=== PATIENT | female | born 1990 | race Caucasian/White ===

== ENCOUNTER 2016-04-27 17:19 | Inpatient (IN) | payer OTHER ==
[~2016-04-27] VITALS: Ht 177.8 cm; Wt 141.0 kg
[~2016-04-27 17:19] MED LIST: ACET50TA PO; IBUP80TA PO; PRENTAB9 PO; ZOLOFT PO; [UNRECOGNIZED DRUG - OTHER] PO
[2016-04-27 17:40] VITALS: BP 112/57
[2016-04-27] MEDS ORDERED: OMEP40CA2 PO (17:42)
[2016-04-27] MEDS ORDERED: BETAMETHASONE SOLUSPAN 6MG/ML INJ 5ML (J0702) IM SCH (18:00)
[2016-04-27] MEDS ORDERED: PENICILLIN G POTASSIUM IV 5 MU in D5W MINI-BAG PLUS 100 ML IV STA (18:24)
[2016-04-27] MEDS ORDERED: miSOPROStol 50 MCG 1/2 TAB (S0191) PO ONE (18:30)
[2016-04-27 18:52] LABS: MEAN CORPUSCULAR HEMOGLOBIN 29.1 pg (27.0-33.0); MEAN CORPUSCULAR HGB CONC 34.2 g/dl (32.0-36.5); MEAN CORPUSCULAR VOLUME 84.9 fl (80.0-96.0); RED CELL DISTRIBUTION WIDTH 14.5 % (11.5-14.5); WHITE BLOOD COUNT 10.9 K/mm3 (4.0-10.0)
--- NOTE | 2016-04-27 19:33 | HPE ---
DATE OF ADMISSION: 04/27/2015 Darlene is a 25-year-old 3, para 2002 incarcerated female who presents to labor and delivery today via [employer] with the complaint of rupture of membranes at approximately 1530 hours. She reports the fluid is clear. She denies contractions. Denies bleeding. Her fetus has been active. care was initiated at [facility] in the first trimester. course complicated by smoking prior to . Rubella nonimmune. GBS: Bacteremia. A history of oligohydramnios. A history of placental abruption. Positive chlamydia during the with treatment of care negative. Recent incarceration for distribution of illegal drugs. OB HISTORY: March 2013 at 38 weeks gestation, she had a spontaneous vaginal delivery for a 4 pounds 7 ounce male with a placental abruption and meconium. was transferred to [facility]. May 2014 at 38 weeks gestation, she had a spontaneous vaginal delivery for a 6 pound 5 ounce female and induction of labor due to oligohydramnios. OB LABS: Blood type is B positive. Antibody screen negative. She is rubella non-immune. VDRL is nonreactive. GBS and urine, hepatitis B surface antigen negative, HIV negative. Hepatitis C antibody negative. Gonorrhea and chlamydia negative. She did decline all genetic serum screening markers. Gestational diabetic screening 106. Gonorrhea and chlamydia negative on 03/31/2016. On 01/22/2016 she had a positive chlamydia. PAST MEDICAL HISTORY: History of depression. Childhood varicella. FAMILY HISTORY: Noncontributory. SURGERIES: None. SOCIAL HISTORY: The patient is single. Father of baby is not present. 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 She denies smoking during the , denies drug use during the . Denies alcohol during the . She does have a history of positive chlamydia. She does deny history of abuse, physical, sexual or emotional. ALLERGIES: No known drug allergies. CURRENT MEDICATIONS: vitamins. OBJECTIVE: Temperature is 98.3, pulse 103, respirations 20, blood pressure 112/57. She is alert and oriented times three. She is in no apparent distress. heart rate is 145 with moderate variability. Positive accelerations. No decelerations noted. There is no pattern of regular contractions. She is grossly ruptured. Clear fluid leaking from her vagina. Positive Nitrazine, positive ferning. STERILE VAGINAL EXAM: 1 cm dilated, 75% effaced, - 3 station. Abdomen is gravid. Cephalic presentation. Bedside ultrasound confirmed cephalic presentation. Estimated weight approximately 2500 grams. ASSESSMENT: Intrauterine at 35 and 2/7 weeks gestation. heart rate category 1. premature rupture of membranes. PLAN: Admit patient to labor and delivery. Labs as ordered. Saline lock. Out of bed ad antoinette. Regular diet at this time. Betamethasone for lung maturity. Will start antibiotics for GBS positive status. I did review the plan of care with the patient and standard care is for induction of labor with premature rupture of membranes in a fetus past 34 weeks. Did review recent evidence that standard care has been changed to betamethasone for lung maturity up until 36-6/7 weeks. The patient did have all of her questions answered. I will start misoprostol 50 mcg by mouth for cervical ripening, one dose, and then start pitocin IV likely unless labor ensues. I do anticipate labor and a spontaneous vaginal delivery. MTDD
[2016-04-27 20:23] VITALS: BP 122/65
[2016-04-27 22:47] VITALS: BP 126/71
[2016-04-27] MEDS ORDERED: PENICILLIN G POTASSIUM IV 2.5 MU in D5W 100 ML IV SCH (23:00)
[2016-04-27] MEDS ORDERED: miSOPROStol 50 MCG 1/2 TAB (S0191) PV ONE (23:30)
[2016-04-28] VITALS (7 sets, daily range): BP systolic 118–157; BP diastolic 66–95
[2016-04-28] MEDS ORDERED: FENTANYL 2MCG/ML ROPIVACAINE 0.2% NACL 250 ML CADD As Ordered ONE (02:35)
[2016-04-28] MEDS ORDERED: OXYTOCIN 30 UNITS IN 0.9% NaCl 500ML IV BAG (J2590) As Ordered ONE (02:48)
[2016-04-28 03:10] LABS: CORD GAS ABE V -1.4; CORD GAS HCO3 V 24.1 MEQ/L; CORD GAS O2 SAT V 55.2 %; CORD GAS PCO2 V 43.4 mmHg; CORD GAS PH V 7.363 UNITS; CORD GAS PO2 V 22.4 mmHg; CORD GAS SBC V 22.4 MEQ/L; CORD GAS TCO2 V 25.5 MEQ/L
[2016-04-28 03:13] LABS: CORD GAS ABE A -0.6; CORD GAS HCO3 A 26.5 MEQ/L; CORD GAS PCO2 A 53.4 mmHg; CORD GAS PH A 7.313 UNITS; CORD GAS PO2 A 17.8 mmHg; CORD GAS SBC A 22.6 MEQ/L; CORD GAS TCO2 A 28.1 MEQ/L
[2016-04-28] MEDS ORDERED: OXYTOCIN DRIP 30 UNITS in APPROPRIATE DILUENT 1 EA IV SCH (03:22)
[2016-04-28] MEDS ORDERED: ACETAMINOPHEN 500 MG TAB PO PRN (03:30)
[2016-04-28] MEDS ORDERED: RHOGAM 300 MCG (1500 IU) INJ (J2790) IM SCH (03:30)
[2016-04-28] MEDS ORDERED: DIBUCAINE 1% OINTMENT 30GM TOP PRN (03:30)
[2016-04-28] MEDS ORDERED: DOCUSATE SODIUM 100 MG CAP PO PRN (03:30)
[2016-04-28] MEDS ORDERED: MEASLES,MUMPS,RUBELLA VACCINE INJ (MMR-II) (90707) SC SCH (03:30)
[2016-04-28] MEDS ORDERED: METHYLERGONOVINE MALEATE 0.2 MG TAB PO PRN (03:30)
--- NOTE | 2016-04-28 04:28 | DN ---
DATE OF SERVICE: 04/28/2016 Darlene is a 25-year-old 3, para 2-1-0-3 now, who was admitted to labor and delivery with premature rupture of membranes (PPROM) and induction of labor was initiated. She received two doses of misoprostol and labor did ensue. She progressed rapidly to full dilation at 0252, pushed to a normal spontaneous vaginal delivery of a live male in occiput anterior (OA) position with restitution to left occiput transverse (LOT) position at 0253. There was no nuchal cord. The shoulders delivered spontaneously and the corpus immediately followed. The was placed on the maternal abdomen crying and active. His mouth and nares were bulb suctioned. The cord was clamped times two and cut by myself. Cord gases and cord blood were obtained. Arterial cord gas at 7.313 with a base excess of negative 0.6. Venous cord gas pH of 7.363 with a base excess of -1.4. Uterine hemostasis was achieved with uterine fundal massage and intravenous (IV) Pitocin rapid infusion. Estimated blood loss 200 mL. Perineum and vagina were inspected and noted to be intact. The weighed 5 pounds 15 ounces, 2696 grams, scores 9 and 9. Mother is planning to bottle feed her son. The name is undecided at this time. At the close of delivery, lap counts, instrument counts, needle counts were correct and verified. [facility]
[2016-04-28] MEDS: IBUPROFEN 800 MG TAB PO PRN ×3 (04:56→19:58)
[2016-04-28] MEDS: PRENATAL VITAMIN TAB PO SCH (08:41)
[2016-04-29 05:35] VITALS: BP 134/78
[2016-04-29] MEDS: PRENATAL VITAMIN TAB PO SCH (08:26)
[2016-04-29] MEDS ORDERED: COLA100C PO (09:09)
[2016-04-29] MEDS ORDERED: ACET50TA PO (09:09)
[2016-04-29] MEDS ORDERED: IBUP-1114 PO (09:09)
== END 2016-04-29 11:49 | DRG 560 ==
LOC: M LDO 17:19 → M LDI 18:18 → M OBS 04-28 04:27
PROVIDERS: ADMIT Advanced Practice Midwife; ATTEND Advanced Practice Midwife
PROC: 10E0XZZ Delivery of Products of Conception, External Approach (ICD-10-PCS; principal; 2016-04-28)
DX: O42.013 Preterm premature rupture of membranes, onset of labor within 24 hours of rupture, third trimester (principal); O99.824 Streptococcus B carrier state complicating childbirth; Z3A.35 35 weeks gestation of pregnancy; Z37.0 Single live birth

== ENCOUNTER → 2016-11-16 | Outpatient (CLI) | payer OTHER ==
[~2016-11-16] MED LIST changes: +BACI50OI EXT; +CEPA5.4L2 MT; +CLEO300C2 PO; +COLA100C5 PO; +IBUP-1114 PO; +OMEP40CA2 PO
--- NOTE | 2016-11-17 04:12 | REP ---
Clinical: Dating and viability. Technique: Transabdominal first trimester obstetrical ultrasound with color Doppler evaluation. Findings: Single live early intrauterine is appreciated. Gestational sac with yolk sac and pole identified. [place]-rump length of 25 mm corresponds to 9 weeks 2 days gestational age with estimated date of delivery 06/19/2017 . heart rate equals 171 beats per minute. No gross abnormalities are identified. Impression: Single live early intrauterine at 9 weeks 2 days gestational age. Complete anatomical assessment should be performed and 19-20 weeks. Signed by Lloyd Kraus MD 11/17/2016 04:03 A
== END ==
LOC: M RAD 14:43
PROVIDERS: ATTEND Midwife
DX: Z36 Encounter for antenatal screening of mother (principal); Z3A.09 9 weeks gestation of pregnancy

== ENCOUNTER 2017-02-06 10:14 | Emergency (ER) | payer OTHER ==
[~2017-02-06] VITALS: Ht 177.8 cm; Wt 122.7 kg
[~2017-02-06 10:14] MED LIST changes: -BACI50OI EXT; -CEPA5.4L2 MT; -CLEO300C2 PO
[2017-02-06 12:12] LABS: BASO # 0.1 10^3/uL (0.0-0.2); BASO % 0.6 % (0.0-1.0); EOS # 0.3 10^3/uL (0.0-0.50); IMMATURE GRANULOCYTE % 0.1 % (0-0); LYMPH # 1.8 10^3/uL (1.5-6.5); LYMPH % 23.7 % (24.0-44.0); MEAN CORPUSCULAR HEMOGLOBIN 28.7 pg (27.0-33.0); MEAN CORPUSCULAR VOLUME 86.9 fl (80.0-96.0); MONO # 0.7 10^3/uL (0.0-0.8); MONO % 8.4 % (0.0-5.0); NEUTROPHILS # 4.9 10^3/uL (1.8-7.7); NEUTROPHILS % 63.2 % (36.0-66.0); PLATELET COUNT, AUTOMATED 274 10^3/uL (150-450); RED CELL DISTRIBUTION WIDTH 12.5 % (11.5-14.5); WHITE BLOOD COUNT 7.8 10^3/uL (4.0-10.0)
[2017-02-06 12:36] LABS: CONTROL LINE MONO INT CTR LINE PRESENT
[2017-02-06] MEDS ORDERED: CLEO300C2 PO (13:07)
[2017-02-06] MEDS ORDERED: CEPA5.4L2 MT (13:07)
[2017-02-06] MEDS ORDERED: BACI50OI EXT (13:07)
[2017-02-06 13:38] VITALS: BP 132/96
== END 2017-02-06 13:40 | disposition home or self-care (01) ==
LOC: M ED 10:14
DX: L02.219 Cutaneous abscess of trunk, unspecified (principal); J06.9 Acute upper respiratory infection, unspecified; Z86.14 Personal history of Methicillin resistant Staphylococcus aureus infection; Z79.899 Other long term (current) drug therapy

== ENCOUNTER → 2017-04-07 | Outpatient (REF) | payer OTHER, MEDICAID ==
[~2017-04-07] MED LIST changes: +BACI50OI EXT; +CEPA5.4L2 MT; +CLEO300C2 PO
== END ==
LOC: M LAB REF 18:05
PROVIDERS: ATTEND Nurse Practitioner Adult Health
DX: Z01.84 Encounter for antibody response examination (principal)

== ENCOUNTER 2017-05-23 03:46 | Day surgery (SDC) | payer OTHER, MEDICAID ==
[2017-05-23] MEDS: MORPHINE 4 MG/ML 1ML VIAL (J2270) IV ×4 (04:18→13:05)
[2017-05-23] MEDS: ONDANSETRON 4MG/2ML VIAL (J2405) IV ×9 (04:18→20:50)
[2017-05-23] MEDS: MORPHINE 4 MG/ML 1ML VIAL IV ×2 (04:18→13:05)
[2017-05-23] MEDS: HYDROmorphone HCL 1 MG/ML SYRINGE (J1170) IV ×3 (05:15)
[2017-05-23] MEDS: NS 1,000 ML IV ×6 (05:30→06:18)
[2017-05-23] MEDS ORDERED: ROPIvacaine 0.5% 30 ML INJECTION (J2795 PER 1MG) ×3 (08:08)
[2017-05-23] MEDS ORDERED: NEOSTIGMINE 10 MG/10 ML VIAL (J2710) ×3 (08:08)
[2017-05-23] MEDS ORDERED: dexameTHASONE 10 MG/1 ML VIAL PRES.FREE (J1100) ×3 (08:08)
[2017-05-23] MEDS ORDERED: LIDOCAINE 1% MDV 20ML VIAL ×3 (08:08)
[2017-05-23] MEDS ORDERED: MORPHINE 2 MG/ML 1ML SYRINGE As Ordered (08:09)
[2017-05-23] MEDS ORDERED: MORPHINE 2 MG/ML 1ML SYRINGE (J2270) As Ordered ×2 (08:09)
[2017-05-23] MEDS: LR 1,000 ML IV ×3 (08:14)
[2017-05-23] MEDS: MORPHINE 2 MG/ML 1ML SYRINGE (J2270) IV ×4 (08:15→10:56)
[2017-05-23] MEDS: MORPHINE 2 MG/ML 1ML SYRINGE IV ×2 (08:15→10:56)
[2017-05-23] MEDS ORDERED: MIDAZOLAM INJ 2 MG/2 ML VIAL (J2250) As Ordered ×9 (14:20→18:57)
[2017-05-23] MEDS ORDERED: fentaNYL 100 MCG/2 ML INJECTION (J3010) As Ordered ×9 (14:20→19:16)
[2017-05-23] MEDS ORDERED: ROCURONIUM BROMIDE 50 MG/5 ML VIAL As Ordered ×3 (17:29)
[2017-05-23] MEDS ORDERED: LIDOCAINE 2% INJ 100 MG/5 ML SYRINGE As Ordered ×3 (17:29)
[2017-05-23] MEDS: ceFAZolin 2 GM/D5W 50 ML IV BAG (J0690 PER 500MG) As Ordered ×3 (17:29)
[2017-05-23] MEDS ORDERED: PROPOFOL 200 MG/20 ML VIAL As Ordered ×6 (17:29→19:44)
[2017-05-23] MEDS ORDERED: NEOSTIGMINE 10 MG/10 ML VIAL (J2710) As Ordered ×3 (17:30)
[2017-05-23] MEDS ORDERED: dexameTHASONE 4 MG/ML 1ML VIAL (J1100) As Ordered ×3 (17:30)
[2017-05-23] MEDS ORDERED: GLYCOPYRROLATE INJ 0.2 MG/ML 2 ML VIAL As Ordered ×3 (17:30)
[2017-05-23] MEDS ORDERED: ONDANSETRON 4MG/2ML VIAL (J2405) As Ordered ×6 (17:30→20:44)
[2017-05-23] MEDS: ceFAZolin 1GM INJ (J0690 PER 500MG) As Ordered ×3 (18:27)
[2017-05-23] MEDS ORDERED: fentaNYL 100 MCG/2 ML INJECTION (J3010) IV ×3 (20:45)
[2017-05-23] MEDS ORDERED: MORPHINE 10 MG/ML 1ML VIAL (J2270) IV ×2 (20:45)
[2017-05-23] MEDS ORDERED: PERCOCET 5MG/325MG TAB As Ordered ×3 (20:45)
[2017-05-23] MEDS ORDERED: oxyCODONE 5MG TAB PO ×3 (20:45)
[2017-05-23] MEDS ORDERED: LR 1,000 ML IV ×6 (20:45)
[2017-05-23] MEDS ORDERED: MORPHINE 10 MG/ML 1ML VIAL IV (20:45)
[2017-05-23] MEDS: PERCOCET 5MG/325MG TAB PO ×3 (20:51)
[2017-05-23] MEDS: oxyCODONE 5MG TAB PO ×3 (22:29)
== END 2017-05-23 22:40 | disposition home or self-care (01) ==
LOC: M SDC 22:40 → M ED 03:46 → M SDC 08:07 → M MS5PR 09:49 → M PED 21:20
DX: S82.851A Displaced trimalleolar fracture of right lower leg, initial encounter for closed fracture (principal); W00.0XXA Fall on same level due to ice and snow, initial encounter; Y92.098 Other place in other non-institutional residence as the place of occurrence of the external cause; F41.9 Anxiety disorder, unspecified; F32.9 Major depressive disorder, single episode, unspecified; F17.210 Nicotine dependence, cigarettes, uncomplicated
CPT/HCPCS: 27822

== ENCOUNTER 2017-05-25 01:57 | Emergency (ER) | payer OTHER ==
[2017-05-25] MEDS: PERCOCET 5MG/325MG TAB PO (03:15)
== END 2017-05-25 03:33 | disposition home or self-care (01) ==
LOC: M ED 01:57
DX: M79.671 Pain in right foot (principal); F17.210 Nicotine dependence, cigarettes, uncomplicated; Z79.82 Long term (current) use of aspirin; Z98.890 Other specified postprocedural states
CPT/HCPCS: 99283

== ENCOUNTER 2017-09-05 16:39 | Emergency (ER) | payer OTHER ==
[2017-09-05] MEDS: TUSSICAPS ER 10/8MG CAPSULE PO (17:30)
== END 2017-09-05 17:45 | disposition home or self-care (01) ==
LOC: M ED 16:39
DX: J30.9 Allergic rhinitis, unspecified (principal); Z87.891 Personal history of nicotine dependence
CPT/HCPCS: 99282

== ENCOUNTER 2017-12-12 10:20 | Emergency (ER) | payer SELFPAY, MEDICAID, OTHER ==
[2017-12-12] MEDS: NS 1,000 ML IV (11:11)
[2017-12-12] MEDS: METOCLOPRAMIDE INJ 10MG/2ML VIAL (J2765) IV (11:12)
[2017-12-12 11:24] LABS: BASO % 0.7 % (0.0-1.0); EOS % 0.7 % (0.0-3.0); HEMATOCRIT 41.1 % (36.0-47.0); HEMOGLOBIN 13.7 g/dl (12.0-15.5); IMMATURE GRANULOCYTE % 0.2 % (0-3.0); LYMPH # 2.3 10^3/uL (1.5-6.5); LYMPH % 37.9 % (24.0-44.0); MEAN CORPUSCULAR HEMOGLOBIN 28.4 pg (27.0-33.0); MEAN CORPUSCULAR HGB CONC 33.3 g/dl (32.0-36.5); MEAN CORPUSCULAR VOLUME 85.1 fl (80.0-96.0); MONO # 0.5 10^3/uL (0.0-0.8); MONO % 8.1 % (0.0-5.0); NEUTROPHILS # 3.1 10^3/uL (1.8-7.7); NEUTROPHILS % 52.4 % (36.0-66.0); PLATELET COUNT, AUTOMATED 245 10^3/uL (150-450); RED BLOOD COUNT 4.83 10^6/uL (4.00-5.40); RED CELL DISTRIBUTION WIDTH 12.2 % (11.5-14.5); WHITE BLOOD COUNT 5.9 10^3/uL (4.0-10.0)
[2017-12-12 11:33] LABS: APPEARANCE, URINE CLOUDY (CLEAR); BACTERIA, URINE AUTO 1+ (NEGATIVE); BILIRUBIN, URINE AUTO NEGATIVE (NEGATIVE); BLOOD, URINE BLOOD NEGATIVE (NEGATIVE); COLOR, URINE YELLOW (YELLOW); GLUCOSE, URINE (UA) AUTO NEGATIVE (NEGATIVE); KETONE, URINE AUTO NEGATIVE (NEGATIVE); LEUKOCYTE ESTERASE, URINE AUTO 1+ (NEGATIVE); MUCUS, URINE SMALL (NEGATIVE); NITRITE, URINE AUTO NEGATIVE (NEGATIVE); PROTEIN, URINE AUTO NEGATIVE (NEGATIVE); RBC, URINE AUTO 1 /HPF (0-3); SPECIFIC GRAVITY URINE AUTO 1.019 (1.002-1.035); SQUAMOUS EPITHELIAL CELL UR AU 13 /HPF (0-6); UROBILINOGEN, URINE AUTO 0.2 mg/dL (0.0-2.0); WBC, URINE AUTO 3 /HPF (0-3)
[2017-12-12 11:53] LABS: ALBUMIN 3.6 GM/DL (3.2-5.2); ALBUMIN/GLOBULIN RATIO 0.82 (1.00-1.93); ALKALINE PHOSPHATASE 93 U/L (45-117); ALT/SGPT 34 U/L (12-78); AMYLASE 36 U/L (25-115); ANION GAP 7 MEQ/L (8-16); AST/SGOT 19 U/L (7-37); BILIRUBIN,TOTAL 0.3 MG/DL (0.2-1.0); BLOOD UREA NITROGEN 10 MG/DL (7-18); CALCIUM LEVEL 8.3 MG/DL (8.5-10.1); CARBON DIOXIDE LEVEL 26 MEQ/L (21-32); CHLORIDE LEVEL 110 MEQ/L (98-107); CREATININE FOR GFR 0.71 MG/DL (0.55-1.30); GLOMERULAR FILTRATION RATE > 60.0 (>60); GLUCOSE, FASTING 94 MG/DL (70-100); HCG, SERUM QUANTITATIVE < 1.0 MIU/ML; LIPASE 132 U/L (73-393); POTASSIUM SERUM 3.7 MEQ/L (3.5-5.1); SODIUM LEVEL 143 MEQ/L (136-145)
== END 2017-12-12 12:45 | disposition home or self-care (01) ==
LOC: M ED 10:20
DX: R11.2 Nausea with vomiting, unspecified (principal); R19.7 Diarrhea, unspecified; E66.9 Obesity, unspecified; F33.9 Major depressive disorder, recurrent, unspecified; F17.200 Nicotine dependence, unspecified, uncomplicated
CPT/HCPCS: J2765

== ENCOUNTER → 2018-04-21 | Outpatient (CLI) | payer OTHER ==
[~2018-04-21] MED LIST changes: +ADVI200T PO; +ASPI81CH PO; +BENZ200C70 PO; +CEFD1CAP8 PO; +FLON1SPR; +MAPA500T2 PO; +OXYC1TAB23 PO; +TUSS1CAP5 PO; +VENTAER PO; +ZOFR4TAB14 PO; +ZYRT10CA5 PO
[2018-04-21 09:58] LABS: HEMATOCRIT 41.1 % (36.0-47.0); HEMOGLOBIN 13.4 g/dl (12.0-15.5); MEAN CORPUSCULAR HEMOGLOBIN 28.3 pg (27.0-33.0); MEAN CORPUSCULAR HGB CONC 32.6 g/dl (32.0-36.5); MEAN CORPUSCULAR VOLUME 86.9 fl (80.0-96.0); PLATELET COUNT, AUTOMATED 250 10^3/uL (150-450); RED BLOOD COUNT 4.73 10^6/uL (4.00-5.40); WHITE BLOOD COUNT 7.2 10^3/uL (4.0-10.0)
[2018-04-21 11:04] LABS: ALBUMIN 3.3 GM/DL (3.2-5.2); ALT/SGPT 35 U/L (12-78); BILIRUBIN,TOTAL 0.2 MG/DL (0.2-1.0); BLOOD UREA NITROGEN 8 MG/DL (7-18); CALCIUM LEVEL 8.6 MG/DL (8.5-10.1); CARBON DIOXIDE LEVEL 29 MEQ/L (21-32); CHLORIDE LEVEL 109 MEQ/L (98-107); CHOLESTEROL LEVEL 118 MG/DL (<200); CREATININE FOR GFR 0.88 MG/DL (0.55-1.30); FERRITIN 62 NG/ML (8-252); FOLATE 9.8 NG/ML (>5.4); GLOMERULAR FILTRATION RATE > 60.0 (>60); GLUCOSE, FASTING 83 MG/DL (70-100); HDL CHOLESTEROL 34 MG/DL (>40); IRON (FE) 29 UG/DL (50-170); LDL CHOLESTEROL 69 MG/DL (<100); NON-HDL-C 84 MG/DL; PERCENT SATURATION 9.9 % (13.2-45.0); POTASSIUM SERUM 3.8 MEQ/L (3.5-5.1); SODIUM LEVEL 144 MEQ/L (136-145); TOTAL IRON BINDING CAPACITY 292 UG/DL (250-450); TOTAL PROTEIN 7.1 GM/DL (6.4-8.2); TRIGLYCERIDES LEVEL 74 MG/DL (<150); VITAMIN B12 LEVEL 336 PG/ML (247-911)
[2018-04-21 11:31] LABS: TOTAL 25(OH) VITAMIN D 33.4 NG/ML (30.0-100.0)
== END ==
LOC: M LAB 09:23
PROVIDERS: ATTEND Nurse Practitioner Women's Health
DX: E66.01 Morbid (severe) obesity due to excess calories (principal)

== ENCOUNTER 2018-07-12 16:56 | Emergency (ER) | payer OTHER ==
[~2018-07-12] VITALS: Ht 177.8 cm; Wt 144.6 kg
[2018-07-12 16:56] VITALS: BP 134/84
[~2018-07-12 16:56] MED LIST changes: -ACET50TA PO; +MAPA500T17 PO
== END 2018-07-12 18:00 | disposition left against medical advice (07) ==
LOC: M ED 16:56
DX: Z53.21 Procedure and treatment not carried out due to patient leaving prior to being seen by health care provider (principal)

== ENCOUNTER 2019-11-17 02:37 | Emergency (ER) | payer OTHER ==
[~2019-11-17 02:37] MED LIST changes: -ASPI81CH PO; +ASPI81CH49 PO; -OMEP40CA2 PO; +OMEP40CA97 PO
== END 2019-11-17 03:49 | disposition home or self-care (01) ==
LOC: M ED 02:37
DX: S60.221A Contusion of right hand, initial encounter (principal); W23.1XXA Caught, crushed, jammed, or pinched between stationary objects, initial encounter; Y92.89 Other specified places as the place of occurrence of the external cause; F17.200 Nicotine dependence, unspecified, uncomplicated; Z79.899 Other long term (current) drug therapy

== ENCOUNTER → 2020-01-04 | Outpatient (CLI) | payer MEDICAID | LOC: M OUTALCOH 08:33 | PROVIDERS: ATTEND Psychiatry & Neurology Addiction Medicine | DX: Z13.39 Encounter for screening examination for other mental health and behavioral disorders (principal); F16.20 Hallucinogen dependence, uncomplicated; F12.20 Cannabis dependence, uncomplicated; F17.200 Nicotine dependence, unspecified, uncomplicated ==

== ENCOUNTER 2020-01-16 10:00 | Outpatient (RCR) | payer MEDICAID | END 2020-01-17 | LOC: M OUTALCOH 10:00 | PROVIDERS: ATTEND Psychiatry & Neurology Addiction Medicine | DX: F16.20 Hallucinogen dependence, uncomplicated (principal); F12.20 Cannabis dependence, uncomplicated; F17.200 Nicotine dependence, unspecified, uncomplicated ==

== ENCOUNTER → 2020-01-25 | Outpatient (REF) | payer MEDICAID ==
[2020-01-25 22:42] LABS: APPEARANCE, URINE CLOUDY (CLEAR); BACTERIA, URINE AUTO 1+ (NEGATIVE); BILIRUBIN, URINE AUTO NEGATIVE (NEGATIVE); BLOOD, URINE BLOOD NEGATIVE (NEGATIVE); CALCIUM OXALATE CRYSTALS LARGE; COLOR, URINE YELLOW (YELLOW); GLUCOSE, URINE (UA) AUTO NEGATIVE (NEGATIVE); KETONE, URINE AUTO NEGATIVE (NEGATIVE); LEUKOCYTE ESTERASE, URINE AUTO 3+ (NEGATIVE); MUCUS, URINE SMALL (NEGATIVE); NITRITE, URINE AUTO NEGATIVE (NEGATIVE); PROTEIN, URINE AUTO NEGATIVE (NEGATIVE); RBC, URINE AUTO 7 /HPF (0-3); SPECIFIC GRAVITY URINE AUTO 1.025 (1.002-1.035); SQUAMOUS EPITHELIAL CELL UR AU 33 /HPF (0-6); UROBILINOGEN, URINE AUTO 0.2 mg/dL (0.0-2.0); WBC, URINE AUTO 7 /HPF (0-3)
== END ==
LOC: M LAB REF 22:02
PROVIDERS: ATTEND Physician Assistant
DX: N39.0 Urinary tract infection, site not specified (principal); Z11.3 Encounter for screening for infections with a predominantly sexual mode of transmission

== ENCOUNTER 2020-02-04 12:03 | Emergency (ER) | payer MEDICAID, OTHER ==
[~2020-02-04] VITALS: Ht 170.2 cm; Wt 87.0 kg
--- NOTE | 2020-02-04 13:18 | REPVR ---
PROCEDURE INFORMATION: Exam: XR Right Foot Complete Exam date and time: 02/04/2020 12:26 PM Age: 29 years old Clinical indication: Injury or trauma; Fall; Swelling (edema); Foot; Right; Additional info: Fall, heard snap, lots of bruising, denied TECHNIQUE: Imaging protocol: XR Right foot. Views: 3 or more views. COMPARISON: CR Ankle, complete 05/23/2017 8:37 PM FINDINGS: Bones/joints: Comminuted minimally displaced fracture of the 5th metatarsal base which appears intra-articular. Questionable subtle nondisplaced fracture of the middle cuneiform. Questionable subtle small cortical fracture at the distal lateral aspect of the cuboid. No dislocation. Hardware in the distal fibula for prior fracture fixation partially included. Soft tissues: Dorsal soft tissue swelling of the foot, particularly at the forefoot. IMPRESSION: 1. Comminuted minimally displaced intra-articular 5th metatarsal base fracture. 2. Questionable subtle nondisplaced fractures of the middle cuneiform and distal lateral aspect of the cuboid. 3. Dorsal soft tissue swelling of the foot, particularly the forefoot. Electronically signed by: Barbara Lanier On 02/04/2020 13:18:08 PM
[2020-02-04 13:43] VITALS: BP 142/86
== END 2020-02-04 14:01 | disposition home or self-care (01) ==
LOC: M ED 12:03
DX: S92.351A Displaced fracture of fifth metatarsal bone, right foot, initial encounter for closed fracture (principal); S92.244A Nondisplaced fracture of medial cuneiform of right foot, initial encounter for closed fracture; S92.214A Nondisplaced fracture of cuboid bone of right foot, initial encounter for closed fracture; M79.9 Soft tissue disorder, unspecified; X50.1XXA Overexertion from prolonged static or awkward postures, initial encounter; Y92.098 Other place in other non-institutional residence as the place of occurrence of the external cause; Z98.84 Bariatric surgery status; Z79.899 Other long term (current) drug therapy

== ENCOUNTER 2020-02-15 10:00 | Outpatient (RCR) | payer MEDICAID | END 2020-02-17 | LOC: M OUTALCOH 10:00 | PROVIDERS: ATTEND Psychiatry & Neurology Addiction Medicine | DX: F16.20 Hallucinogen dependence, uncomplicated (principal); F12.20 Cannabis dependence, uncomplicated; F17.200 Nicotine dependence, unspecified, uncomplicated ==

== ENCOUNTER → 2020-06-10 | Outpatient (CLI) | payer OTHER ==
--- NOTE | 2020-06-10 17:40 | REP ---
INDICATION: CONTUSION. COMPARISON: None. TECHNIQUE: Three views nasal bones. FINDINGS: No fracture is seen of the nasal bones or maxillary spines. Visualized paranasal sinuses are clear with no air-fluid level. IMPRESSION: No acute fracture. <Electronically signed by Ananda Franco > 06/10/20 [id number]
== END ==
LOC: M WUC 13:43
PROVIDERS: ATTEND Physician Assistant
DX: S00.33XA Contusion of nose, initial encounter (principal); X58.XXXA Exposure to other specified factors, initial encounter; Y92.89 Other specified places as the place of occurrence of the external cause; Y93.89 Activity, other specified; Y99.8 Other external cause status

== ENCOUNTER 2021-04-26 02:52 | Observation (INO) | payer OTHER ==
[~2021-04-26] VITALS: Ht 172.7 cm; Wt 97.1 kg
[2021-04-26] VITALS (8 sets, daily range): BP systolic 116–119; BP diastolic 67–70
[~2021-04-26 02:52] MED LIST changes: -CEFD1CAP8 PO; +CEFD300C41 PO; +OMEP40CA4 PO; -OMEP40CA97 PO
[2021-04-26] MEDS ORDERED: OMEP40CA5 PO (02:59)
[2021-04-26] MEDS ORDERED: MORPHINE 4 MG/ML 1ML VIAL/SYRINGE (J2270) IV ONE (03:40)
[2021-04-26] MEDS ORDERED: ONDANSETRON 4MG/2ML VIAL IV ONE (03:40)
[2021-04-26 04:52] LABS: HEMATOCRIT 40.8 % (36.0-47.0); HEMOGLOBIN 13.6 g/dl (12.0-15.5); MEAN CORPUSCULAR HEMOGLOBIN 29.1 pg (27.0-33.0); MEAN CORPUSCULAR HGB CONC 33.3 g/dl (32.0-36.5); MEAN CORPUSCULAR VOLUME 87.4 fl (80.0-96.0); PLATELET COUNT, AUTOMATED 265 10^3/uL (150-450); RED BLOOD COUNT 4.67 10^6/uL (4.00-5.40); WHITE BLOOD COUNT 7.3 10^3/uL (4.0-10.0)
[2021-04-26 05:28] LABS: ALBUMIN 3.8 GM/DL (3.2-5.2); ALT/SGPT 27 U/L (12-78); BILIRUBIN,DIRECT 0.1 MG/DL (0.0-0.2); BILIRUBIN,TOTAL 0.3 MG/DL (0.2-1.0); BLOOD UREA NITROGEN 10 MG/DL (7-18); CALCIUM LEVEL 8.1 MG/DL (8.5-10.1); CARBON DIOXIDE LEVEL 25 MEQ/L (21-32); CHLORIDE LEVEL 111 MEQ/L (98-107); CREATININE FOR GFR 0.79 MG/DL (0.55-1.30); GLOMERULAR FILTRATION RATE > 60.0 (>60); GLUCOSE, FASTING 96 MG/DL (70-100); POTASSIUM SERUM 4.5 MEQ/L (3.5-5.1); SALICYLATE LEVEL < 1.7 MG/DL (5.0-30.0); SODIUM LEVEL 143 MEQ/L (136-145)
[2021-04-26 05:30] LABS: ACETAMINOPHEN LEVEL < 2.0 UG/ML (10.0-30.0)
[2021-04-26 05:31] LABS: HCG, SERUM QUALITATIVE NEGATIVE (NEGATIVE)
[2021-04-26] MEDS ORDERED: HOME MED LIST COMPLETE! XX SCH (06:05)
[2021-04-26 06:09] LABS: RSV AMPLIFICATION NEGATIVE (NEGATIVE)
[2021-04-26] MEDS ORDERED: NS 1,000 ML IV ONE (06:10)
[2021-04-26 06:47] LABS: AMPHETAMINES LEVEL URINE NEGATIVE (NEGATIVE); BARBITURATES URINE NEGATIVE (NEGATIVE); BENZODIAZEPINES URINE NEGATIVE (NEGATIVE); CANNABINOIDS URINE NEGATIVE (NEGATIVE); COCAINE METABOLITE URINE NEGATIVE (NEGATIVE); METHADONE URINE NEGATIVE (NEGATIVE); OPIATES URINE POSITIVE (NEGATIVE); PHENCYCLIDINE URINE NEGATIVE (NEGATIVE)
[2021-04-26] MEDS ORDERED: MIDAZOLAM INJ 2MG/2ML VIAL (J2250 PER 1MG) IV PRN (07:01)
[2021-04-26] MEDS ORDERED: MORPHINE 2 MG/ML 1ML VIAL (J2270) IV ONE (11:00)
[2021-04-26] MEDS ORDERED: BUPIVACAINE/EPIN 0.5% 30 ML VIAL As Ordered ONE (11:32)
[2021-04-26] MEDS ORDERED: MIDAZOLAM INJ 2MG/2ML VIAL (J2250 PER 1MG) As Ordered ONE (12:31)
[2021-04-26] MEDS ORDERED: fentaNYL 100 MCG/2 ML INJECTION (J3010) As Ordered ONE ×2 (12:31→12:35)
[2021-04-26] MEDS ORDERED: ROCURONIUM BROMIDE 50 MG/5 ML VIAL As Ordered ONE ×2 (12:34→13:39)
[2021-04-26] MEDS ORDERED: propofoL 200 MG/20 ML VIAL As Ordered ONE (12:34)
[2021-04-26] MEDS ORDERED: LIDOCAINE 2% 100MG/5ML SDV (FOR ANES.) As Ordered ONE (12:34)
[2021-04-26] MEDS ORDERED: EPINEPHrine INJ 1 MG/ML 1ML AMP XX ONE (12:35)
[2021-04-26] MEDS ORDERED: dexameTHASONE 10MG/1ML VIAL PRES.FREE (J1100 PER 1MG) XX ONE (12:35)
[2021-04-26] MEDS ORDERED: LIDOCAINE 1% MDV 20ML VIAL XX ONE (12:35)
[2021-04-26] MEDS ORDERED: ROPIvacaine 0.5% 30ML INJECTION (J2795 PER 1MG) XX ONE (12:35)
[2021-04-26] MEDS: fentaNYL 100 MCG/2 ML INJECTION (J3010) IV PRN ×2 (12:40→12:45)
[2021-04-26] MEDS ORDERED: ceFAZolin 2 GM/D5W 50 ML IV BAG (J0690 PER 500MG) As Ordered ONE (12:41)
[2021-04-26] MEDS ORDERED: dexameTHASONE 4 MG/ML 1ML VIAL (J1100 PER 1MG) As Ordered ONE (13:17)
[2021-04-26] MEDS ORDERED: SUGAMMADEX SODIUM 500 MG/5 ML VIAL (BRIDION) As Ordered ONE (13:38)
[2021-04-26] MEDS ORDERED: ONDANSETRON 4MG/2ML VIAL As Ordered ONE (13:38)
[2021-04-26] MEDS ORDERED: METOCLOPRAMIDE INJ 10MG/2ML VIAL (J2765 PER 1) As Ordered ONE (13:38)
[2021-04-26] MEDS ORDERED: ACETAMINOPHEN 1000MG 100ML IV BTL (OFIRMEV) (J0131 PER 10MG) As Ordered ONE (13:38)
[2021-04-26] MEDS ORDERED: MOM 30ML SUSPENSION UDC PO PRN (16:15)
[2021-04-26] MEDS ORDERED: SENOKOT S TAB PO PRN (16:15)
[2021-04-26] MEDS ORDERED: ONDANSETRON 4MG/2ML VIAL IV PRN ×2 (16:15→16:25)
[2021-04-26] MEDS ORDERED: ACETAMINOPHEN TAB 650MG DOSE (2X325MG) PO PRN (16:15)
[2021-04-26] MEDS ORDERED: PERCOCET 5MG/325MG TAB PO PRN ×2 (16:15)
[2021-04-26] MEDS ORDERED: LORazepam 2 MG TAB PO PRN (16:15)
[2021-04-26] MEDS ORDERED: OXAZEPAM 10 MG CAP PO PRN (16:15)
[2021-04-26] MEDS ORDERED: METOCLOPRAMIDE INJ 10MG/2ML VIAL (J2765 PER 1) IV PRN (16:25)
[2021-04-26] MEDS ORDERED: oxyCODONE 5MG TAB PO PRN ×2 (16:25→16:40)
[2021-04-26] MEDS ORDERED: MEPERIDINE INJ 25 MG/ML VIAL (J2175) IV PRN (16:25)
[2021-04-26] MEDS ORDERED: LR 1,000 ML IV SCH ×2 (16:25→16:35)
[2021-04-26] MEDS ORDERED: fentaNYL 100 MCG/2 ML INJECTION (J3010) IV PRN (16:25)
[2021-04-26] MEDS ORDERED: MORPHINE 2 MG/ML 1ML VIAL (J2270) IV PRN (16:40)
[2021-04-26] MEDS ORDERED: MORPHINE 4 MG/ML 1ML VIAL/SYRINGE (J2270) IV PRN (16:40)
[2021-04-26] MEDS ORDERED: MULTIVITAMIN -ADULT INJECTION 10 ML, THIAMINE INJection 100 MG, FOLIC ACID 1 MG in NS 1... IV ONE (20:00)
[2021-04-26] MEDS: MULTIVITAMINS/MINERALS THERAP 1 TAB PO SCH (20:09)
[2021-04-26] MEDS: ceFAZolin SOD 2 GM in IV 1 EA IV SCH (22:31)
[2021-04-27 01:53] VITALS: BP 119/70
[2021-04-27 02:00] VITALS: BP 122/68
[2021-04-27] MEDS: oxyCODONE 5MG TAB PO PRN ×2 (04:23→10:47)
[2021-04-27] MEDS: ceFAZolin SOD 2 GM in IV 1 EA IV SCH (05:59)
[2021-04-27 06:00] VITALS: BP_SYST 119; BP_SYST 124; BP_DIAS 68; BP_DIAS 70
[2021-04-27] MEDS ORDERED: SENN-52 PO (07:18)
[2021-04-27] MEDS ORDERED: OXYC-517 PO (07:18)
[2021-04-27] MEDS ORDERED: ACET1TAB55 PO (07:20)
[2021-04-27] MEDS ORDERED: FOLIC ACID 1 MG TAB PO SCH (09:00)
[2021-04-27] MEDS ORDERED: THIAMINE 100 MG TAB PO SCH (09:00)
[2021-04-27] MEDS: MULTIVITAMINS/MINERALS THERAP 1 TAB PO SCH (09:03)
== END 2021-04-27 14:35 | disposition home or self-care (01) ==
LOC: M ED 02:52 → M SDC 02:53 → M MS5PR 02:54 → M SDC 16:49 → M MS5PR 04-27 14:35
PROVIDERS: ADMIT General Practice; ATTEND Orthopaedic Surgery Adult Reconstructive Orthopaedic Surgery
DX: S82.852A Displaced trimalleolar fracture of left lower leg, initial encounter for closed fracture (principal); W00.0XXA Fall on same level due to ice and snow, initial encounter; Y92.410 Unspecified street and highway as the place of occurrence of the external cause; Y93.01 Activity, walking, marching and hiking; Y99.8 Other external cause status; F10.120 Alcohol abuse with intoxication, uncomplicated; Z87.81 Personal history of (healed) traumatic fracture; Z98.84 Bariatric surgery status; Z79.899 Other long term (current) drug therapy; Z79.891 Long term (current) use of opiate analgesic
CPT/HCPCS: 27823; 64445; 73564; 73600; 73610; 73700; 80048; 80076; 80143; 80307; 82077; 84443; 84703; 85027; 86850; 86900; 86901; 87631; 96361; 96365; 96366; 96367; 96375; 96376; 97116; 97161; 99285; C1713; J0131; J0690; J1100; J2250; J2270; J2405; J2765; J3010; J3411

== ENCOUNTER → 2021-05-06 | Outpatient (CLI) | payer OTHER ==
[~2021-05-06] MED LIST changes: +ACET1TAB55 PO; +OMEP40CA5 PO; +OXYC-517 PO; +SENN-52 PO
== END ==
LOC: M SOG 09:43
PROVIDERS: ATTEND Orthopaedic Surgery
DX: S82.892D Other fracture of left lower leg, subsequent encounter for closed fracture with routine healing (principal); X58.XXXD Exposure to other specified factors, subsequent encounter; Y92.89 Other specified places as the place of occurrence of the external cause

== ENCOUNTER → 2022-02-26 | Outpatient (REF) | LOC: M LAB 11:35 | PROVIDERS: ATTEND Nurse Practitioner Adult Health | DX: Z00.00 Encounter for general adult medical examination without abnormal findings (principal) ==

== ENCOUNTER → 2022-05-18 | Outpatient (REF) ==
[2022-05-18 13:18] LABS: RSV AMPLIFICATION NEGATIVE (NEGATIVE)
== END ==
LOC: M EMP 12:01
PROVIDERS: ATTEND Family Medicine
DX: Z11.52 Encounter for screening for COVID-19 (principal)

== ENCOUNTER 2022-06-13 20:56 | Emergency (ER) | payer OTHER ==
[~2022-06-13] VITALS: Ht 177.8 cm; Wt 95.9 kg
[2022-06-13 20:56] VITALS: BP 132/83
[2022-06-13 21:27] LABS: BASO % 0.6 % (0.0-1.0); EOS # 0.1 10^3/uL (0.0-0.5); EOS % 1.6 % (0.0-3.0); HEMATOCRIT 35.3 % (36.0-47.0); HEMOGLOBIN 11.2 g/dl (12.0-15.5); LYMPH # 1.8 10^3/uL (1.5-5.0); LYMPH % 25.9 % (24.0-44.0); MEAN CORPUSCULAR HEMOGLOBIN 27.1 pg (27.0-33.0); MEAN CORPUSCULAR HGB CONC 31.7 g/dl (32.0-36.5); MEAN CORPUSCULAR VOLUME 85.5 fl (80.0-96.0); MONO # 0.6 10^3/uL (0.0-0.8); MONO % 8.3 % (2.0-8.0); NEUTROPHILS # 4.5 10^3/uL (1.5-8.5); NEUTROPHILS % 63.5 % (36.0-66.0); PLATELET COUNT, AUTOMATED 253 10^3/uL (150-450); RED BLOOD COUNT 4.13 10^6/uL (4.00-5.40)
[2022-06-13 21:54] LABS: LIPASE 30 U/L (12-53)
[2022-06-13 21:58] LABS: ALBUMIN 3.6 G/DL (3.2-5.2); ALKALINE PHOSPHATASE 104 U/L (46-116); ALT/SGPT 16 U/L (7.0-40); AST/SGOT 27 U/L (<34); BILIRUBIN,TOTAL 0.8 MG/DL (0.3-1.2); BLOOD UREA NITROGEN 14 MG/DL (9-23); CALCIUM LEVEL 8.6 MG/DL (8.5-10.1); CARBON DIOXIDE LEVEL 27 MMOL/L (20-31); CHLORIDE LEVEL 104 MMOL/L (98-107); GLOMERULAR FILTRATION RATE > 60.0 (>60); GLUCOSE, FASTING 100 MG/DL (60-100); MAGNESIUM LEVEL 2.1 MG/DL (1.8-2.4); POTASSIUM SERUM 3.8 MMOL/L (3.5-5.1); SODIUM LEVEL 136 MMOL/L (136-145); TOTAL PROTEIN 6.8 G/DL (5.7-8.2)
[2022-06-13 21:59] LABS: C REACTIVE PROTEIN QUANTITATIV < 0.40 MG/DL (<1.0)
[2022-06-13 22:00] LABS: HCG, SERUM QUALITATIVE NEGATIVE (NEGATIVE)
[2022-06-13] MEDS ORDERED: MORPHINE 4 MG/ML 1ML VIAL IV ONE (22:30)
[2022-06-13] MEDS ORDERED: ONDANSETRON 4MG 2ML VIAL IV ONE (22:30)
[2022-06-13] MEDS ORDERED: GI COCKTAIL 50ML BTL(HYOSCYAMINE/MAALOX/LIDOCAINE VISCOUS)(1:3:1) PO ONE (22:35)
[2022-06-13] MEDS ORDERED: NS 1,000 ML IV SCH (22:35)
[2022-06-13] MEDS ORDERED: PANTOPRAZOLE 40MG VIAL IV ONE (22:35)
[2022-06-13] MEDS: GASTROGRAFIN SOLUTION 30ML PO SCH ×2 (23:13→23:30)
[2022-06-14] MEDS ORDERED: ISOVUE-370 76% 100ML VIAL As Ordered ONE (00:27)
[2022-06-14] MEDS ORDERED: PEPC1TAB5 PO (01:39)
== END 2022-06-14 02:27 | disposition home or self-care (01) ==
LOC: M ED 20:56
DX: K52.9 Noninfective gastroenteritis and colitis, unspecified (principal); Z98.84 Bariatric surgery status
CPT/HCPCS: 74177; 80053; 81001; 83605; 83690; 83735; 84703; 85025; 86140; 93041; 94760; 96361; 96374; 96375; 99284; C9113; J2270; J2405

== ENCOUNTER → 2022-06-22 | Outpatient (REF) ==
[~2022-06-22] MED LIST changes: +PEPC1TAB5 PO
== END ==
LOC: M EMP 12:15
PROVIDERS: ATTEND Family Medicine
DX: Z11.52 Encounter for screening for COVID-19 (principal)

== ENCOUNTER → 2022-06-24 | Outpatient (REF) | LOC: M EMP 08:55 | PROVIDERS: ATTEND Family Medicine | DX: Z11.52 Encounter for screening for COVID-19 (principal) ==

== ENCOUNTER → 2022-10-06 | Outpatient (CLI) | payer OTHER ==
[2022-10-06 15:57] LABS: HEMATOCRIT 34.6 % (36.0-47.0); HEMOGLOBIN 10.8 g/dl (12.0-15.5); MEAN CORPUSCULAR HEMOGLOBIN 25.2 pg (27.0-33.0); MEAN CORPUSCULAR HGB CONC 31.2 g/dl (32.0-36.5); MEAN CORPUSCULAR VOLUME 80.7 fl (80.0-96.0); PLATELET COUNT, AUTOMATED 263 10^3/uL (150-450); RED BLOOD COUNT 4.29 10^6/uL (4.00-5.40); WHITE BLOOD COUNT 5.7 10^3/uL (4.0-10.0)
[2022-10-06 16:06] LABS: TOTAL PROTEIN,RANDOM URINE 19.6 MG/DL (0.0-14.0)
[2022-10-06 16:32] LABS: URIC ACID 3.4 MG/DL (3.1-7.8)
[2022-10-06 16:34] LABS: LDH LACTATE DEHYDROGENASE 134 U/L (120-246)
[2022-10-06 16:35] LABS: ALT/SGPT 13 U/L (7.0-40); AST/SGOT 11 U/L (<34); BILIRUBIN,TOTAL 0.4 MG/DL (0.3-1.2); CREATININE FOR GFR 0.69 MG/DL (0.55-1.30); GLOMERULAR FILTRATION RATE > 60.0 (>60)
[2022-10-06 17:26] LABS: GC DNA AMPLIFICATION NEGATIVE (NEGATIVE)
[2022-10-06 21:11] LABS: HIV 1&2 SCREEN NEGATIVE (NEGATIVE)
[2022-10-06 21:19] LABS: HEPATITIS C VIRUS ABY INDEX 0.15 INDEX (<0.8)
== END ==
LOC: M PLALAB 14:04
PROVIDERS: ATTEND Advanced Practice Midwife
DX: Z34.91 Encounter for supervision of normal pregnancy, unspecified, first trimester (principal)

== ENCOUNTER → 2022-10-30 | Outpatient (REF) | payer OTHER | LOC: M PLALAB 13:32 | PROVIDERS: ATTEND Advanced Practice Midwife | DX: R35.0 Frequency of micturition (principal) ==

== ENCOUNTER → 2022-10-30 | Outpatient (CLI) | payer OTHER | LOC: M PLALAB 13:58 | PROVIDERS: ATTEND Advanced Practice Midwife | DX: Z34.81 Encounter for supervision of other normal pregnancy, first trimester (principal) ==

== ENCOUNTER → 2022-12-23 | Outpatient (CLI) | payer MEDICAID, OTHER, SELFPAY | LOC: M WHC 11:55 | PROVIDERS: ATTEND Advanced Practice Midwife | DX: Z34.92 Encounter for supervision of normal pregnancy, unspecified, second trimester (principal) ==

== ENCOUNTER → 2023-04-01 | Outpatient (CLI) | payer OTHER ==
[~2023-04-01] MED LIST changes: +CEFD1CAP9 PO; -CEFD300C41 PO
[2023-04-01 13:47] LABS: HEMOGLOBIN 9.2 g/dl (12.0-15.5); MEAN CORPUSCULAR HGB CONC 30.7 g/dl (32.0-36.5); MEAN CORPUSCULAR VOLUME 81.5 fl (80.0-96.0); PLATELET COUNT, AUTOMATED 233 10^3/uL (150-450); RED BLOOD COUNT 3.68 10^6/uL (4.00-5.40); WHITE BLOOD COUNT 6.5 10^3/uL (4.0-10.0)
[2023-04-01 14:13] LABS: FOLATE 8.84 NG/ML (>5.4)
[2023-04-01 16:12] LABS: HEMOGLOBIN A1c 4.9 % (4.0-6.0)
== END ==
LOC: M PLALAB 09:43
PROVIDERS: ATTEND Advanced Practice Midwife
DX: Z34.82 Encounter for supervision of other normal pregnancy, second trimester (principal)

== ENCOUNTER → 2023-04-13 | Outpatient (REF) | payer OTHER ==
[~2023-04-13] MED LIST changes: +OMEP-173 PO
== END ==
LOC: M SFHCWAGY 16:59
PROVIDERS: ATTEND Advanced Practice Midwife
DX: Z36.85 Encounter for antenatal screening for Streptococcus B (principal)

== ENCOUNTER 2023-05-05 12:05 | Inpatient (IN) | payer OTHER ==
[~2023-05-05] VITALS: Ht 177.8 cm; Wt 103.6 kg
[2023-05-05] VITALS (15 sets, daily range): BP systolic 115–167; BP diastolic 74–97; O2SAT 99
[~2023-05-05 12:05] MED LIST changes: -OMEP-173 PO
[2023-05-05] MEDS ORDERED: HOME MED LIST COMPLETE! XX SCH (13:00)
[2023-05-05] MEDS ORDERED: OMEP-173 PO (13:00)
[2023-05-05] MEDS ORDERED: PRENTAB9 PO (13:00)
[2023-05-05 13:08] LABS: HEMATOCRIT 28.2 % (36.0-47.0); HEMOGLOBIN 8.6 g/dl (12.0-15.5); MEAN CORPUSCULAR HEMOGLOBIN 23.4 pg (27.0-33.0); MEAN CORPUSCULAR HGB CONC 30.5 g/dl (32.0-36.5); MEAN CORPUSCULAR VOLUME 76.6 fl (80.0-96.0); PLATELET COUNT, AUTOMATED 273 10^3/uL (150-450); RED BLOOD COUNT 3.68 10^6/uL (4.00-5.40); WHITE BLOOD COUNT 7.7 10^3/uL (4.0-10.0)
[2023-05-05] MEDS ORDERED: METHYLERGONOVINE MALEATE 0.2MG/ML 1ML VIAL IM PRN (14:05)
[2023-05-05] MEDS ORDERED: TRANEXAMIC ACID INJection 1,000 MG in NS 100 ML IV PRN (14:05)
[2023-05-05] MEDS ORDERED: OXYTOCIN INJ 10UNITS/ML 1ML VIAL IM PRN (14:05)
[2023-05-05] MEDS ORDERED: LIDOCAINE 1% MDV 20ML VIAL INFIL PRN (14:05)
[2023-05-05] MEDS ORDERED: CARBOPROST TROMETHAMINE 250 MCG/ML AMP IM PRN (14:05)
[2023-05-05] MEDS ORDERED: OXYTOCIN DRIP 30 UNITS in IV 1 EA IV PRN ×4 (14:05)
[2023-05-05] MEDS: ACETAMINOPHEN 500 MG TAB PO PRN (14:19)
[2023-05-05] MEDS ORDERED: miSOPROStol 50MCG 1/2 TABLET PO ONE (15:00)
[2023-05-05] MEDS ORDERED: LR 1,000 ML IV ONE (15:20)
[2023-05-05] MEDS ORDERED: LR 1,000 ML IV SCH ×3 (15:20→18:05)
[2023-05-05] MEDS ORDERED: OXYTOCIN DRIP 30 UNITS in IV 1 EA IV SCH ×2 (18:00→18:05)
[2023-05-05] MEDS ORDERED: IBUPROFEN 600MG TAB PO PRN (20:15)
[2023-05-05] MEDS ORDERED: IBUPROFEN 800 MG TAB PO PRN (20:15)
[2023-05-05] MEDS ORDERED: DIBUCAINE 1% OINTMENT 30GM TOP PRN (20:15)
[2023-05-05] MEDS ORDERED: ACETAMINOPHEN TAB 650MG DOSE (2X325MG) PO PRN (20:15)
[2023-05-05] MEDS ORDERED: RHOGAM 300MCG (1500IU) INJ IM SCH (20:15)
[2023-05-05] MEDS ORDERED: DOCUSATE SODIUM 100MG CAPSULE PO PRN (20:15)
[2023-05-06] MEDS: ACETAMINOPHEN 500 MG TAB PO PRN ×2 (03:40→17:24)
[2023-05-06 06:00] VITALS: BP 107/61; O2SAT 97
[2023-05-06] MEDS: PRENATAL VITAMINS CHEWABLE TABLET PO SCH (07:49)
[2023-05-06 18:00] VITALS: BP 139/87; O2SAT 95
[2023-05-07 05:59] VITALS: BP 112/59; O2SAT 99
[2023-05-07] MEDS ORDERED: MEASLES,MUMPS,RUBELLA VACCINE INJ (MMR-II) SC.IMMUN ONE (09:00)
[2023-05-07] MEDS: PRENATAL VITAMINS CHEWABLE TABLET PO SCH (09:00)
== END 2023-05-07 12:50 | disposition home or self-care (01) | DRG 560 ==
LOC: EEVIPCON 12:05 → M LDI 12:05 → M OBS 21:45
PROVIDERS: ADMIT Advanced Practice Midwife; ATTEND Advanced Practice Midwife
PROC: 10E0XZZ Delivery of Products of Conception, External Approach (ICD-10-PCS; principal; 2023-05-05)
PROC: 3E0P7GC Introduction of Other Therapeutic Substance into Female Reproductive, Via Natural or Artificial Opening (ICD-10-PCS; 2023-05-05)
PROC: 10907ZC Drainage of Amniotic Fluid, Therapeutic from Products of Conception, Via Natural or Artificial Opening (ICD-10-PCS; 2023-05-05)
DX: O41.03X0 Oligohydramnios, third trimester, not applicable or unspecified (principal); F17.290 Nicotine dependence, other tobacco product, uncomplicated; Z3A.38 38 weeks gestation of pregnancy; O99.334 Smoking (tobacco) complicating childbirth; O99.844 Bariatric surgery status complicating childbirth; O69.81X0 Labor and delivery complicated by cord around neck, without compression, not applicable or unspecified; Z37.0 Single live birth

== ENCOUNTER → 2023-08-02 | Outpatient (CLI) | payer OTHER, MEDICAID ==
[~2023-08-02] MED LIST changes: +OMEP-173 PO
== END ==
LOC: M WUC 09:47
PROVIDERS: ATTEND Student in an Organized Health Care Education/Training Program
DX: M79.641 Pain in right hand (principal)

== ENCOUNTER → 2023-10-07 | Outpatient (REF) | payer OTHER ==
[2023-10-07 17:30] LABS: BASO % 0.8 % (0.0-1.0); EOS # 0.1 10^3/uL (0.0-0.5); EOS % 2.2 % (0.0-3.0); HEMATOCRIT 30.3 % (36.0-47.0); HEMOGLOBIN 8.9 g/dl (12.0-15.5); LYMPH # 1.9 10^3/uL (1.5-5.0); LYMPH % 39.1 % (24.0-44.0); MEAN CORPUSCULAR HEMOGLOBIN 20.8 pg (27.0-33.0); MEAN CORPUSCULAR HGB CONC 29.4 g/dl (32.0-36.5); MEAN CORPUSCULAR VOLUME 70.8 fl (80.0-96.0); MONO # 0.4 10^3/uL (0.0-0.8); MONO % 8.6 % (2.0-8.0); NEUTROPHILS # 2.4 10^3/uL (1.5-8.5); NEUTROPHILS % 49.1 % (36.0-66.0); PLATELET COUNT, AUTOMATED 285 10^3/uL (150-450); RED BLOOD COUNT 4.28 10^6/uL (4.00-5.40); WHITE BLOOD COUNT 4.9 10^3/uL (4.0-10.0)
[2023-10-07 18:00] LABS: ALBUMIN 3.3 G/DL (3.2-5.2); ALKALINE PHOSPHATASE 113 U/L (46-116); ALT/SGPT 20 U/L (7.0-40); AST/SGOT 14 U/L (<34); BILIRUBIN,TOTAL 0.6 MG/DL (0.3-1.2); BLOOD UREA NITROGEN 12 MG/DL (9-23); CALCIUM LEVEL 8.6 MG/DL (8.5-10.1); CARBON DIOXIDE LEVEL 24 MMOL/L (20-31); CHLORIDE LEVEL 109 MMOL/L (98-107); CHOLESTEROL LEVEL 134 MG/DL (<200); CHOLESTEROL RISK RATIO 2.19 (<5); CREATININE FOR GFR 0.66 MG/DL (0.55-1.30); GLOMERULAR FILTRATION RATE > 60.0 (>60); GLUCOSE, FASTING 87 MG/DL (60-100); HDL CHOLESTEROL 61.1 MG/DL (>40); LDL CHOLESTEROL 64.5 MG/DL (<100); NON-HDL-C 72.9 MG/DL; POTASSIUM SERUM 4.2 MMOL/L (3.5-5.1); SODIUM LEVEL 138 MMOL/L (136-145); TOTAL PROTEIN 6.7 G/DL (5.7-8.2); TRIGLYCERIDES LEVEL 42 MG/DL (<150)
[2023-10-07 18:04] LABS: THYROID STIMULATING HORMONE 0.569 uIU/ML (0.55-4.78)
[2023-10-07 18:37] LABS: HEMOGLOBIN A1c 4.8 % (4.0-6.0)
== END ==
LOC: M LAB REF 16:27
PROVIDERS: ATTEND Nurse Practitioner Family
DX: E66.9 Obesity, unspecified (principal)

== ENCOUNTER 2024-02-23 13:49 | Emergency (ER) | payer OTHER ==
[~2024-02-23] VITALS: Ht 177.8 cm; Wt 106.2 kg
[2024-02-23 15:05] LABS: BASO % 0.2 % (0.0-1.0); EOS % 0.2 % (0.0-3.0); HEMATOCRIT 30.9 % (36.0-47.0); HEMOGLOBIN 8.6 g/dl (12.0-15.5); LYMPH # 0.6 10^3/uL (1.5-5.0); LYMPH % 10.4 % (24.0-44.0); MEAN CORPUSCULAR HEMOGLOBIN 18.3 pg (27.0-33.0); MEAN CORPUSCULAR HGB CONC 27.8 g/dl (32.0-36.5); MEAN CORPUSCULAR VOLUME 65.6 fl (80.0-96.0); MONO # 0.1 10^3/uL (0.0-0.8); MONO % 2.2 % (2.0-8.0); NEUTROPHILS % 86.8 % (36.0-66.0); PLATELET COUNT, AUTOMATED 256 10^3/uL (150-450); RED BLOOD COUNT 4.71 10^6/uL (4.00-5.40); WHITE BLOOD COUNT 5.8 10^3/uL (4.0-10.0)
[2024-02-23 15:32] LABS: ALBUMIN 3.7 G/DL (3.2-5.2); ALKALINE PHOSPHATASE 98 U/L (35-104); ALT/SGPT 27 U/L (7.0-40); AST/SGOT 56 U/L (<34); BILIRUBIN,DIRECT 0.1 MG/DL (<0.4); BILIRUBIN,TOTAL 0.5 MG/DL (0.3-1.2); HCG, SERUM QUANTITATIVE 295.3 MIU/ML (<4.2); LIPASE 35 U/L (12-53)
[2024-02-23 16:21] LABS: BLOOD UREA NITROGEN 9 MG/DL (9-23); CALCIUM LEVEL 9.4 MG/DL (8.5-10.1); CARBON DIOXIDE LEVEL 22 MMOL/L (20-31); CHLORIDE LEVEL 107 MMOL/L (98-107); GLOMERULAR FILTRATION RATE > 60.0 (>60); GLUCOSE, FASTING 117 MG/DL (60-100); MICROCYTOSIS 3+; POTASSIUM SERUM 5.5 MMOL/L (3.5-5.1); SODIUM LEVEL 138 MMOL/L (136-145)
[2024-02-23 16:22] LABS: HELMET CELLS 2+; SCHISTOCYTES 3+
[2024-02-23 16:24] LABS: OVALOCYTES 2+
[2024-02-23 16:25] LABS: TEAR DROP CELLS 1+
[2024-02-23 16:26] LABS: ANISOCYTOSIS 2+; POIKILOCYTOSIS 3+
[2024-02-23 16:30] LABS: PLATELET ESTIMATE NORMAL (NORMAL)
[2024-02-23] MEDS: MORPHINE 4 MG/ML 1ML VIAL IV ONE (17:14)
[2024-02-23] MEDS: ONDANSETRON 4MG 2ML VIAL IV ONE (17:14)
[2024-02-23] MEDS ORDERED: CARA1TAB6 PO (19:18)
[2024-02-23] MEDS ORDERED: ONDA-282 PO (19:18)
[2024-02-23] MEDS ORDERED: OMEP40CA5 PO (19:18)
[2024-02-23 19:27] VITALS: BP 125/74; TEMP 98.1; O2SAT 97
== END 2024-02-23 19:33 | disposition home or self-care (01) ==
LOC: M ED 13:49
DX: O04.89 (Induced) termination of pregnancy with other complications (principal); K21.9 Gastro-esophageal reflux disease without esophagitis; F41.9 Anxiety disorder, unspecified; F32.A Depression, unspecified; Z98.84 Bariatric surgery status; Z79.899 Other long term (current) drug therapy
CPT/HCPCS: 74021; 76705; 80048; 80076; 83690; 84132; 84702; 85025; 96374; 99284; J2405

== ENCOUNTER 2024-03-14 06:13 | Day surgery (SDC) | payer OTHER ==
[~2024-03-14] VITALS: Ht 177.8 cm; Wt 106.6 kg
[~2024-03-14 06:13] MED LIST changes: +ACET-840 PO; +CARA1TAB6 PO; +ONDA-282 PO
[2024-03-14] MEDS ORDERED: fentaNYL 100 MCG/2 ML INJECTION As Ordered ONE (06:35)
[2024-03-14] MEDS ORDERED: propofoL 200 MG/20 ML VIAL As Ordered ONE (06:35)
[2024-03-14] MEDS ORDERED: LIDOCAINE 2% 100MG/5ML SDV (FOR ANES.) As Ordered ONE (06:35)
[2024-03-14] MEDS ORDERED: MIDAZOLAM INJ 2MG/2ML VIAL As Ordered ONE (06:35)
[2024-03-14] MEDS ORDERED: ONDANSETRON 4MG 2ML VIAL As Ordered ONE (06:36)
[2024-03-14] MEDS ORDERED: ROCURONIUM BROMIDE 50MG/5ML VIAL As Ordered ONE (06:36)
[2024-03-14] MEDS ORDERED: KETOROLAC 60MG 2ML VIAL As Ordered ONE (06:36)
[2024-03-14] MEDS ORDERED: METOCLOPRAMIDE INJ 10MG/2ML VIAL As Ordered ONE (06:37)
[2024-03-14] MEDS ORDERED: SUGAMMADEX SODIUM 500 MG/5 ML VIAL (BRIDION) As Ordered ONE (06:42)
[2024-03-14] MEDS ORDERED: ACETAMINOPHEN 1000MG/100ML IV BAG As Ordered ONE (06:43)
[2024-03-14 07:01] LABS: HEMATOCRIT 28.3 % (36.0-47.0); HEMOGLOBIN 8.2 g/dl (12.0-15.5); MEAN CORPUSCULAR HEMOGLOBIN 18.9 pg (27.0-33.0); MEAN CORPUSCULAR VOLUME 65.2 fl (80.0-96.0); PLATELET COUNT, AUTOMATED 267 10^3/uL (150-450); RED BLOOD COUNT 4.34 10^6/uL (4.00-5.40); WHITE BLOOD COUNT 4.5 10^3/uL (4.0-10.0)
[2024-03-14] MEDS ORDERED: dexmedeTOMIDine (4MCG/ML)200MCG/50ML BTL (PRECEDEX) As Ordered ONE (07:20)
[2024-03-14 07:38] LABS: HCG, SERUM QUALITATIVE NEGATIVE (NEGATIVE)
[2024-03-14] MEDS ORDERED: HYDROMORPHONE HCL 0.5 MG/ 0.5 ML SYRINGE IV PRN (08:40)
[2024-03-14] MEDS ORDERED: oxyCODONE 5MG TAB PO PRN (08:40)
[2024-03-14] MEDS ORDERED: fentaNYL 100 MCG/2 ML INJECTION IV PRN (08:40)
[2024-03-14] MEDS ORDERED: diphenhydrAMINE 50MG/ML VIAL IV PRN (08:40)
[2024-03-14] MEDS ORDERED: ONDANSETRON 4MG 2ML VIAL IV PRN (08:40)
[2024-03-14] MEDS ORDERED: METOCLOPRAMIDE INJ 10MG/2ML VIAL IV PRN (08:40)
[2024-03-14] MEDS ORDERED: MEPERIDINE 25 MG/ML 1ML VIAL IV PRN (08:40)
[2024-03-14 09:49] VITALS: BP 103/78; TEMP 96.9; O2SAT 100
== END 2024-03-14 10:40 | disposition home or self-care (01) ==
LOC: M SDC 06:13
PROVIDERS: ATTEND Obstetrics & Gynecology
DX: Z30.2 Encounter for sterilization (principal); N83.8 Other noninflammatory disorders of ovary, fallopian tube and broad ligament; D17.79 Benign lipomatous neoplasm of other sites; Z79.899 Other long term (current) drug therapy; Z98.84 Bariatric surgery status
CPT/HCPCS: 36415; 58661; 84703; 85027; 86850; 86900; 86901; 88302; J0131; J0665; J1100; J1885; J2250; J2405; J2765; J3010

== ENCOUNTER 2024-07-17 12:53 | Emergency (ER) | payer OTHER ==
[~2024-07-17] VITALS: Ht 177.8 cm; Wt 100.7 kg
[2024-07-17 14:08] LABS: BASO % 0.4 % (0.0-1.0); EOS # 0.2 10^3/uL (0.0-0.5); EOS % 3.6 % (0.0-3.0); HEMATOCRIT 25.6 % (36.0-47.0); LYMPH # 1.8 10^3/uL (1.5-5.0); LYMPH % 26.2 % (24.0-44.0); MEAN CORPUSCULAR HEMOGLOBIN 15.6 pg (27.0-33.0); MEAN CORPUSCULAR HGB CONC 26.6 g/dl (32.0-36.5); MEAN CORPUSCULAR VOLUME 58.9 fl (80.0-96.0); MONO # 0.8 10^3/uL (0.0-0.8); MONO % 12.4 % (2.0-8.0); NEUTROPHILS # 3.8 10^3/uL (1.5-8.5); NEUTROPHILS % 57.1 % (36.0-66.0); PLATELET COUNT, AUTOMATED 275 10^3/uL (150-450); RED BLOOD COUNT 4.35 10^6/uL (4.00-5.40); WHITE BLOOD COUNT 6.7 10^3/uL (4.0-10.0)
[2024-07-17 14:35] LABS: LIPASE 29 U/L (12-53)
[2024-07-17 14:36] LABS: AMYLASE 34 U/L (30-118)
[2024-07-17 14:37] LABS: ALBUMIN 3.2 G/DL (3.2-5.2); ALKALINE PHOSPHATASE 89 U/L (35-104); ALT/SGPT 16 U/L (7.0-40); AST/SGOT 17 U/L (<34); BILIRUBIN,DIRECT 0.2 MG/DL (<0.4); BILIRUBIN,TOTAL 0.5 MG/DL (0.3-1.2); BLOOD UREA NITROGEN 10 MG/DL (9-23); CALCIUM LEVEL 8.7 MG/DL (8.5-10.1); CARBON DIOXIDE LEVEL 26 MMOL/L (20-31); CHLORIDE LEVEL 106 MMOL/L (98-107); CREATININE FOR GFR 0.69 MG/DL (0.55-1.30); GLOMERULAR FILTRATION RATE > 60.0 (>60); GLUCOSE, FASTING 90 MG/DL (60-100); POTASSIUM SERUM 4.6 MMOL/L (3.5-5.1); SODIUM LEVEL 138 MMOL/L (136-145); TOTAL PROTEIN 7.5 G/DL (5.7-8.2)
[2024-07-17 14:39] LABS: HEMOGLOBIN 6.8 g/dl (12.0-15.5)
[2024-07-17 14:42] LABS: HCG, SERUM QUALITATIVE NEGATIVE (NEGATIVE)
[2024-07-17 16:03] LABS: KETONE, URINE AUTO RFX NEGATIVE (NEGATIVE); MUCUS, URINE RFX SMALL (NEGATIVE); NITRITE, URINE AUTO RFX NEGATIVE (NEGATIVE); RBC, URINE AUTO RFX 3 /HPF (0-3); SQUAM EPITHELIAL CELL UR AURFX 12 /HPF (0-6)
[2024-07-17 16:12] LABS: LEUKOCYTE ESTERASE UR AUTO RFX 3+ (NEGATIVE); WBC, URINE AUTO RFX 11 /HPF (0-3)
[2024-07-17] MEDS: NS (Normal Saline) 0.9% 1,000 ML IV ONE (17:01)
[2024-07-17] MEDS: PANTOPRAZOLE 40MG VIAL IV ONE (17:03)
[2024-07-17] MEDS: ONDANSETRON 4MG 2ML VIAL IV ONE (17:03)
[2024-07-17] MEDS: MORPHINE 2 MG/ML 1ML VIAL IV ONE (17:10)
[2024-07-17] MEDS: GASTROGRAFIN SOLUTION 30ML PO SCH (17:35)
[2024-07-17] MEDS ORDERED: ISOVUE-370 76% 100ML VIAL As Ordered ONE (19:09)
[2024-07-17] MEDS ORDERED: MIRA3350 PO (21:36)
[2024-07-17 21:41] VITALS: O2SAT 100
[2024-07-17 21:50] VITALS: TEMP 97.9
[2024-07-17 21:52] VITALS: BP 112/70
== END 2024-07-17 21:55 | disposition home or self-care (01) ==
LOC: M ED 12:53
DX: K59.00 Constipation, unspecified (principal); R10.9 Unspecified abdominal pain; K21.9 Gastro-esophageal reflux disease without esophagitis; D64.9 Anemia, unspecified; F41.9 Anxiety disorder, unspecified; F32.A Depression, unspecified; Z79.1 Long term (current) use of non-steroidal anti-inflammatories (NSAID); Z79.899 Other long term (current) drug therapy
CPT/HCPCS: 74177; 80048; 80076; 81001; 82150; 83690; 84703; 85025; 87086; 96374; 96375; 99284; J2405; J2470; Q9963; Q9967

== ENCOUNTER 2025-03-22 21:58 | Emergency (ER) | payer OTHER ==
[~2025-03-22] VITALS: Ht 177.8 cm; Wt 94.7 kg
[~2025-03-22 21:58] MED LIST changes: +MIRA3350 PO
[2025-03-22 22:49] LABS: BASO # 0.1 10^3/uL (0.0-0.2); BASO % 0.6 % (0.0-1.0); EOS # 0.1 10^3/uL (0.0-0.5); EOS % 1.0 % (0.0-3.0); LYMPH # 2.3 10^3/uL (1.5-5.0); LYMPH % 27.4 % (24.0-44.0); MONO # 0.7 10^3/uL (0.0-0.8); MONO % 8.1 % (2.0-8.0); NEUTROPHILS # 5.2 10^3/uL (1.5-8.5); NEUTROPHILS % 62.7 % (36.0-66.0); PLATELET COUNT, AUTOMATED 362 10^3/uL (150-450)
[2025-03-22 23:14] LABS: HCG, SERUM QUALITATIVE NEGATIVE (NEGATIVE)
[2025-03-22 23:30] LABS: IRON (FE) 9 UG/DL (50-170); PERCENT SATURATION 1.9 % (13.2-45.0)
[2025-03-22 23:33] LABS: ALT/SGPT 20 U/L (7.0-40); AST/SGOT 22 U/L (<34); CALCIUM LEVEL 9.0 MG/DL (8.5-10.1); CARBON DIOXIDE LEVEL 25 MMOL/L (20-31); CHLORIDE LEVEL 103 MMOL/L (98-107); CREATININE FOR GFR 0.63 MG/DL (0.55-1.30); GLOMERULAR FILTRATION RATE > 90.0 (>60); POTASSIUM SERUM 3.9 MMOL/L (3.5-5.1); SODIUM LEVEL 138 MMOL/L (136-145)
[2025-03-22 23:48] LABS: KETONE, URINE AUTO RFX NEGATIVE (NEGATIVE); MUCUS, URINE RFX SMALL (NEGATIVE); NITRITE, URINE AUTO RFX NEGATIVE (NEGATIVE); RBC, URINE AUTO RFX 11 /HPF (0-3); SQUAM EPITHELIAL CELL UR AURFX 8 /HPF (0-6)
[2025-03-23] VITALS (8 sets, daily range): BP systolic 115–137; BP diastolic 56–78; TEMP 97.5–98.6; O2SAT 98–100
[2025-03-23 00:01] LABS: LEUKOCYTE ESTERASE UR AUTO RFX 3+ (NEGATIVE); WBC, URINE AUTO RFX 21 /HPF (0-3)
[2025-03-23] MEDS: ONDANSETRON 4MG/2ML VIAL IV ONE (00:23)
[2025-03-23] MEDS: KETOROLAC 30 MG/ML 1 ML VIAL IV ONE ×2 (00:24→03:58)
[2025-03-23] MEDS: GASTROGRAFIN SOLUTION 30ML PO SCH (01:37)
[2025-03-23] MEDS ORDERED: ISOVUE-370 76% 100 ML VIAL As Ordered ONE (02:59)
[2025-03-23] MEDS ORDERED: CEFD1CAP9 PO (05:22)
[2025-03-23] MEDS ORDERED: KETO-204 PO (05:22)
[2025-03-23] MEDS: cefTRIAXone SOD 1 GM in DEXTROSE 5% (D5W) ADV/MINI-BAG 50 ML IV ONE (08:06)
== END 2025-03-23 09:31 | disposition home or self-care (01) ==
LOC: M ED 21:58
DX: N10 Acute pyelonephritis (principal); D50.9 Iron deficiency anemia, unspecified; F10.10 Alcohol abuse, uncomplicated; Z79.1 Long term (current) use of non-steroidal anti-inflammatories (NSAID); Z79.2 Long term (current) use of antibiotics; Z79.899 Other long term (current) drug therapy
CPT/HCPCS: 36430; 74177; 80048; 80076; 81001; 82728; 83550; 83690; 84703; 85025; 85046; 86850; 86900; 86901; 86920; 87086; 96365; 96375; 96376; 99285; J0696; J1885; J2405; P9016; Q9963; Q9967

== ENCOUNTER 2025-03-29 19:23 | Emergency (ER) | payer OTHER ==
[~2025-03-29] VITALS: Ht 177.8 cm; Wt 96.6 kg
[~2025-03-29 19:23] MED LIST changes: +KETO-204 PO
[2025-03-29 20:19] LABS: KETONE, URINE AUTO RFX TRACE mg/dL (NEGATIVE); MUCUS, URINE RFX MODERATE (NEGATIVE); NITRITE, URINE AUTO RFX NEGATIVE (NEGATIVE); RBC, URINE AUTO RFX 1 /HPF (0-3); SQUAM EPITHELIAL CELL UR AURFX 17 /HPF (0-6); WBC, URINE AUTO RFX 7 /HPF (0-3)
[2025-03-29 20:20] LABS: LEUKOCYTE ESTERASE UR AUTO RFX 1+ (NEGATIVE)
[2025-03-29 20:21] LABS: BASO # 0.1 10^3/uL (0.0-0.2); BASO % 0.6 % (0.0-1.0); EOS # 0.1 10^3/uL (0.0-0.5); EOS % 1.2 % (0.0-3.0); LYMPH # 2.0 10^3/uL (1.5-5.0); LYMPH % 23.4 % (24.0-44.0); MONO # 0.7 10^3/uL (0.0-0.8); MONO % 8.2 % (2.0-8.0); NEUTROPHILS # 5.7 10^3/uL (1.5-8.5); NEUTROPHILS % 66.4 % (36.0-66.0); PLATELET COUNT, AUTOMATED 356 10^3/uL (150-450)
[2025-03-29 20:49] LABS: ALT/SGPT 17 U/L (7.0-40); AST/SGOT 22 U/L (<34); CALCIUM LEVEL 8.7 MG/DL (8.5-10.1); CARBON DIOXIDE LEVEL 26 MMOL/L (20-31); CHLORIDE LEVEL 107 MMOL/L (98-107); CREATININE FOR GFR 0.72 MG/DL (0.55-1.30); GLOMERULAR FILTRATION RATE > 90.0 (>60); POTASSIUM SERUM 4.6 MMOL/L (3.5-5.1); SODIUM LEVEL 140 MMOL/L (136-145)
[2025-03-29 21:02] LABS: HCG, SERUM QUALITATIVE NEGATIVE (NEGATIVE)
[2025-03-30] MEDS: ONDANSETRON 4MG/2ML VIAL IV ONE (01:22)
[2025-03-30] MEDS: NS (Normal Saline) 0.9% 1,000 ML IV ONE (01:24)
[2025-03-30] MEDS: MORPHINE 4 MG/ML 1 ML VIAL IV PRN (01:25)
[2025-03-30] MEDS: GASTROGRAFIN SOLUTION 30ML PO SCH (02:10)
[2025-03-30] MEDS ORDERED: ISOVUE-370 76% 100 ML VIAL As Ordered ONE (03:17)
[2025-03-30] MEDS: MORPHINE 2 MG/ML 1 ML VIAL IV PRN (05:00)
[2025-03-30] MEDS: PANTOPRAZOLE 40MG VIAL IV ONE (06:24)
[2025-03-30] MEDS ORDERED: PROT1TAB2 PO (06:29)
[2025-03-30 06:30] VITALS: BP 119/72; TEMP 98.4; O2SAT 99
== END 2025-03-30 06:32 | disposition home or self-care (01) ==
LOC: M ED 19:23
DX: K29.00 Acute gastritis without bleeding (principal); K21.9 Gastro-esophageal reflux disease without esophagitis; F41.9 Anxiety disorder, unspecified; F32.A Depression, unspecified; Z79.1 Long term (current) use of non-steroidal anti-inflammatories (NSAID); Z79.2 Long term (current) use of antibiotics; Z79.899 Other long term (current) drug therapy
CPT/HCPCS: 74177; 76775; 80048; 80076; 81001; 83605; 83690; 84703; 85025; 87086; 96361; 96374; 96375; 96376; 99284; J2405; J2470; Q9963; Q9967